=== PATIENT | female | born 1985 | race Caucasian/White ===

== ENCOUNTER 2017-05-14 18:41 | Emergency (ER) | payer SELFPAY ==
[2017-05-14 19:07] VITALS: RESP 18
[2017-05-14] MEDS ORDERED: Sodium Chloride 0.9% 1,000 ML IV ONE (20:07)
[2017-05-14 20:19] LABS: BASO # 0.1 K/uL (0.0-0.2); BASO % 0.8 % (0.0-2.0); EOS # 0.5 K/uL (0.0-0.7); HEMATOCRIT 38.8 % (34.0-47.0); LYMPH # 2.3 K/uL (1.0-4.3); LYMPH % 22.4 % (20.0-40.0); MEAN CELL VOLUME 84.5 fL (81.0-99.0); MEAN CORPUSCULAR HEMOGLOBIN 28.7 pg (27.0-31.0); MEAN CORPUSCULAR HGB CONC 33.9 g/dL (33.0-37.0); MEAN PLATELET VOLUME 9.2 fL (7.2-11.7); MONO # 0.9 K/uL (0.0-0.8); RED CELL DISTRIBUTION WIDTH 13.8 % (11.5-14.5); WHITE BLOOD COUNT 10.4 K/uL (4.8-10.8)
[2017-05-14 20:29] LABS: CHLORIDE 105 mmol/L (98-107); SODIUM 143 mmol/L (132-148)
[2017-05-14 20:32] LABS: ALB/GLOB RATIO 1.3 (1.0-2.1); ALKALINE PHOSPHATASE 95 U/L (38-126); ALT/SGPT 29 U/L (9-52); AST/SGOT 31 U/L (14-36); BILIRUBIN,TOTAL 0.5 mg/dL (0.2-1.3); BLOOD UREA NITROGEN 14 mg/dL (7-17); CARBON DIOXIDE 25 mmol/L (22-30); GFR AFRICAN-AMERICAN > 60; GLUCOSE,RANDOM 76 mg/dL (65-105); TOTAL PROTEIN 7.7 g/dL (6.3-8.3)
[2017-05-14 20:33] LABS: CALCIUM 8.8 mg/dl (8.6-10.4)
[2017-05-14 20:39] LABS: RBC URINE 5 /hpf (0-3); TRANSITIONAL EPITHIAL < 1 /hpf (0-3); URINE BACTERIA FEW (<OCC); URINE BILIRUBIN NEGATIVE (NEGATIVE); URINE BLOOD 1+ (NEGATIVE); URINE COLOR Yellow (YELLOW); URINE GLUCOSE (UA) NORMAL (Normal); URINE KETONE NEGATIVE (NEGATIVE); URINE LEUKOCYTE ESTERASE 3+ Leu/uL (Negative); URINE PROTEIN NEGATIVE (NEGATIVE); URINE UROBILINOGEN NORMAL mg/dL (0.2-1.0); WBC URINE 40 /hpf (0-5)
--- NOTE | 2017-05-14 21:05 | C.PDOC ---
History Of Present Illness 31 year old female presents to the ED for evaluation of right-sided abdominal pain which began this morning. Patient states her pain worsens around her right lower quadrant and is associated with dysuria. She denies fever, chills, nausea , vomiting and has no other complaints at this time. Time Seen by Provider: 05/14/17 20:37 Chief Complaint (Nursing): Abdominal Pain History Per: Patient History/Exam Limitations: no limitations Onset/Duration Of Symptoms: Hrs Current Symptoms Are (Timing): Still Present Location Of Pain/Discomfort: RLQ, Other (right-sided) Radiation Of Pain To:: None Quality Of Discomfort: "Pain" Associated Symptoms: Urinary Symptoms (dysuria ). denies: Fever, Chills, Nausea , Vomiting Additional History Per: Patient Abnormal Vaginal Bleeding: No Past Medical History Reviewed: Historical Data, Nursing Documentation, Vital Signs Vital Signs: Last Vital Signs Temp 97.9 F 05/14/17 23:54 Pulse 63 05/14/17 23:54 Resp 18 05/14/17 23:54 BP 107/71 05/14/17 23:54 Pulse Ox 99 05/22/17 15:29 - Medical History PMH: Asthma Surgical History: No Surg Hx - [facility] Procedures INJECT/INFUSE NEC (09/02/06) Family History: States: Unknown Family Hx - Social History Hx Alcohol Use: Yes Hx Substance Use: No - Immunization History Hx Tetanus Toxoid Vaccination: No Hx Influenza Vaccination: No Hx Pneumococcal Vaccination: No Review Of Systems Constitutional: Negative for: Fever, Chills Gastrointestinal: Positive for: Abdominal Pain (right-sided, worse around right lower quadrant ). Negative for: Nausea, Vomiting Genitourinary: Positive for: Dysuria Physical Exam - Physical Exam Appears: Non-toxic, No Acute Distress Skin: Normal Color, Warm, Dry Head: Atraumatic Eye(s): bilateral: Normal Inspection Oral Mucosa: Moist Neck: Supple Chest: Symmetrical, No Deformity, No Tenderness Cardiovascular: Rhythm Regular, No Murmur Respiratory: Normal Breath Sounds, No Rales, No Rhonchi, No Wheezing Gastrointestinal/Abdominal: Soft, Tenderness (right lower quadrant ), No Guarding, No Rebound Pelvic: Normal External Exam, No Vaginal Bleeding, Vaginal Discharge ((+)white) , No Cervical Motion Tenderness, No Cervix Open Extremity: Normal ROM, Capillary Refill (less than 2 seconds ) Neurological/Psych: Oriented x3, Normal Speech, Normal Cognition Gait: Steady ED Course And Treatment - Laboratory Results Result Diagrams: 05/14/17 20:15 05/14/17 20:15 O2 Sat by Pulse Oximetry: 99 (on RA) Pulse Ox Interpretation: Normal Medical Decision Making Medical Decision Making: ro uti/appendcitis Impression: 31 year old female with right-sided abdominal pain, dysuria Plan: * labs * CT A/P * IV Fluids * reassess and disposition Progress: Labs and CT A/P ordered and reviewed. Patient received IV Fluids. ct shows right sided adenxal lesion us added. us shows large ovarian lesion. case discussed with dr santiago. toa less likely as pt wo leukocytosis, in monogomous relationship with . dr santiago requests outpt obgyn f/u. abd soft no ttp. torsion less likely. pt given strict return precautions, pt verbalizes understanding. dr santiago requests d/c with augmentin and doxy. Disposition - Disposition Referrals: [facility] [Outside] [facility] [Outside] [facility] [Outside] [email or web address] [facility] [Outside] [facility] [Outside] Dio Santiago MD [Staff Provider] - Disposition: HOME/ ROUTINE Disposition Time: 01:00 Condition: STABLE Prescriptions: Amoxicillin/Clavulanate [Augmentin 875 MG-125 MG] 1 tab PO BID #14 tab Doxycycline Hyclate [Doryx] 100 mg PO BID #14 cap Instructions: Ovarian Cyst (ED), Acute Abdominal Pain (ED) Forms: [employer] (Montenegrin) - Clinical Impression Clinical Impression: Abdominal pain, Ovarian cyst - Scribe Statement The provider has reviewed the documentation as recorded by the Scribe (Cinthia Hernandez) Provider Attestation: All medical record entries made by the Scribe were at my direction and personally dictated by me. I have reviewed the chart and agree that the record accurately reflects my personal performance of the history, physical exam, medical decision making, and the department course for this patient. I have also personally directed, reviewed, and agree with the discharge instructions and disposition.
[2017-05-14] MEDS ORDERED: Iohexol 350mg/ml 100 ML ONE (21:28)
[2017-05-14] MEDS ORDERED: cefTRIAXone IV 1 gm in Dextros 50 ML IVPB STA (21:38)
[2017-05-14] MEDS ORDERED: cefTRIAXone IV 1 gm in Dextros 50 ML IVPB ONE (21:43)
--- NOTE | 2017-05-14 22:32 | CT ---
EXAM: CT Abdomen and Pelvis With Intravenous Contrast CLINICAL HISTORY: 31 years old, female; Pain; Abdominal pain; Localized; Right lower quadrant (rlq); Additional info: Rlq pain TECHNIQUE: Axial computed tomography images of the abdomen and pelvis with intravenous contrast. All CT scans at this facility use one or more dose reduction techniques, viz.: automated exposure control; ma/kV adjustment per patient size (including targeted exams where dose is matched to indication; i.e. head); or iterative reconstruction technique. Sagittal reformatted images were created and reviewed. CONTRAST: 100 mL of omnipaque 350 administered intravenously. COMPARISON: No relevant prior studies available. FINDINGS: Lower thorax: LEFT lower lobe calcified granuloma. 0.2 cm RIGHT middle lobe nodule. ABDOMEN: Liver: Unremarkable. No mass. Gallbladder and bile ducts: No calcified stones. No ductal dilation. Pancreas: No ductal dilation. No mass. Spleen: No splenomegaly. Adrenals: No mass. Kidneys and ureters: No mass. No hydronephrosis. Stomach and bowel: No definite mural thickening. No obstruction. Appendix: No findings to suggest acute appendicitis. PELVIS: Bladder: Unremarkable. Reproductive: 5.6 x 5.1 x 5.6 cm septated hypodense lesion within RIGHT ovary. Minimal adjacent haziness. ABDOMEN and PELVIS: Intraperitoneal space: Trace free fluid within pelvis. No free air. Bones/joints: No acute fracture. Soft tissues: Unremarkable. Vasculature: Unremarkable. No aneurysm. Lymph nodes: No pathologically enlarged lymph nodes. IMPRESSION: 1. Adnexal lesion, indeterminate. Recommend ultrasound. 2. Pulmonary nodule, nonspecific. Followup as clinically warranted. 3. Incidental/non-acute findings are described above.
[2017-05-14 23:55] VITALS: BP 107/71; PULSE 63; TEMP 97.9
--- NOTE | 2017-05-15 00:01 | US ---
EXAM: US Pelvis Complete, Transabdominal CLINICAL HISTORY: 31 years old, female; Pain; Pelvic pain; Additional info: Right adenxal pain TECHNIQUE: Real-time transabdominal pelvic ultrasound (complete) with image documentation. COMPARISON: CT - ABD PELVIS IV CONTRAST ONLY 05/14/2017 9:59:11 PM FINDINGS: Uterus/cervix: Uterus measures 11.5 x 5.0 x 5.0 cm in size. No myometrial mass. Endometrium: 1.8 cm in thickness. Right ovary: 5.9 x 5.6 x 6.9 cm in size. 6.3 x 4.9 x 4.9 cm heterogeneous lesion with internal echoes. Normal flow. Left ovary: 3.0 x 2.0 x 3.6 cm in size. No mass. Normal flow. Free fluid: No significant free fluid. Bladder: Unremarkable as visualized. IMPRESSION: 1. Complex RIGHT ovarian lesion. DDX: Hemorrhagic cyst, endometrioma, TOA, neoplasm. Clinical correlation and follow up are recommended. 2. Thickened endometrium. Clinical correlation is needed. 3. Incidental/non-acute findings are described above. EXAM: US Pelvis, Transvaginal CLINICAL HISTORY: 31 years old, female; Pain; Pelvic pain; Additional info: Right adenxal pain TECHNIQUE: Real-time transvaginal pelvic ultrasound (complete) with image documentation. Transvaginal imaging was used for better evaluation of the endometrium and adnexa. COMPARISON: CT - ABD PELVIS IV CONTRAST ONLY 05/14/2017 9:59:11 PM FINDINGS: Uterus/cervix: Uterus measures 11.5 x 5.0 x 5.0 cm in size. No myometrial mass. Endometrium: 1.8 cm in thickness. Right ovary: 5.9 x 5.6 x 6.9 cm in size. 6.3 x 4.9 x 4.9 cm heterogeneous lesion with internal echoes. Normal flow. Left ovary: 3.0 x 2.0 x 3.6 cm in size. No mass. Normal flow. Free fluid: No significant free fluid. Bladder: Empty bladder which cannot be evaluated with this probe.
[2017-05-15 00:41] VITALS: O2SAT 99
== END 2017-05-15 00:37 | disposition home or self-care (01) ==
LOC: C.ER 18:41
DX: N83.201 Unspecified ovarian cyst, right side (principal); R10.9 Unspecified abdominal pain
CPT/HCPCS: 74177; 76830; 76856; 80053; 81001; 84703; 85025; 87086; 87181; 87491; 87591; 96360; 99285; J0696; J7040; Q9967